=== PATIENT | male | born 1965 | race Caucasian/White ===

== ENCOUNTER → 2021-02-15 | Outpatient (CLI) | payer BC, OTHER ==
[~2021-02-15] VITALS: Ht 175.3 cm; Wt 114.8 kg
[~2021-02-15] MED LIST: ASA81BEC PO; LOPRESSOR50 MG PO; NITROSTAT0.4 M1 SUBLING; NORVASC10 MG PO; PROAIR HFA8.5 GM INH; ROSUVASTATIN CA20 MG PO; VIAGRA100 MG PO
[2021-02-15 07:23] LABS: ABSOLUTE NEUTROPHILS 5.1 thou/uL (1.4-8.2); HEMATOCRIT 47.4 % (42.0-52.0); LYMPHOCYTES 20.9 % (24.0-44.0); MCH 31.2 pg (26.0-34.0); MCHC 33.8 g/dL (28.0-37.0); MCV 92.3 fL (80.0-100.0); MONOCYTES 12.2 % (1.0-8.0); PLATELET COUNT 267 thou/uL (150-400); POLYS 59.9 % (36.0-66.0); RBC 5.14 mil/uL (4.50-6.00); RDW 12.9 % (10.5-14.5); WBC 8.6 thou/uL (4.0-11.0)
[2021-02-15 07:24] VITALS: BP 129/77
[2021-02-15 07:32] LABS: CALCIUM 8.9 mg/dL (8.5-10.1); CREATININE 0.9 mg/dL (0.7-1.3); POTASSIUM 4.3 mmol/L (3.5-5.1)
--- NOTE | 2021-02-17 14:51 | CATHLAB ---
[facility] [place] [address] INVASIVE PROCEDURE REPORT Name: FLORIN FARRAR Room #: [facility] Alanna#: [id number] Admission: 02/15/21 Attend Phys: Chris Jimenez MD, Discharge: Date of : 65 Report #: [id number] THIS REPORT FOR: cc: Farrukh Wiley James R. DO Mancuso, Gerald M. MD [facility] ~ APPROVED REPORT Study performed: 02/15/2021 07:57:34 Procedure Narrative A 6F [place] sheath was inserted into the RFA. Coronary angiography was performed using coronary diagnostic catheters. The right coronary system was accessed and visualized with a 6F JR4 catheter. The left coronary system was accessed and visualized with a 6F JL4 catheter. The left ventricle was accessed and visualized with a 6F Pigtail catheter. Left ventriculogram was performed in 30 degree projection. An aortogram of the abdominal aorta was performed. Pre-demployment femoral angiogram was performed . Closure device was deployed with a 6 Fr 6/7F MynxGrip. Hemostasis was obtained with manual pressure following sheath removal without any complications. The patient tolerated the procedure well and there were no complications associated with the procedure. There was no hematoma. Intraoperative Conscious Sedation Sedation start time: 08:52 Case end Time: 09:28 Fentanyl 50.0 mcg Versed 2.0 mg Fluoro Time: 2.4 minutes Dose: DAP 6916.27 cGycm2 818 mGy Contrast Type and Amount: Omnipaque 350-100ml Hemodynamics The right atrial mean pressure is 11 mmHg. The right ventricular pressure is 33/6 mmHg. The pulmonary artery pressure is 31/12 mmHg with a mean of 22 mmHg. The mean pulmonary capillary wedge pressure is 13 mmHg. The aortic pressure is 119/70 mmHg with a mean of 86 mmHg. The left ventricular pressure is 1286 mmHg with a mean of mmHg. The left ventricular end diastolic pressure is 19 mmHg. The cardiac output using thermo method is 5.25 L/min. The cardiac index using thermo method is 2.30 L/min/m2. Conclusion [facility] [address] [place] [address] INVASIVE PROCEDURE REPORT Name: FLORIN FARRAR Room #: [facility] Alanna#: [id number] Admission: 02/15/21 Attend Phys: Chris Jimenez, Discharge: Date of : 65 Report #: [id number] #1 Successful right heart catheterization with cardiac output by thermodilution. See above hemodynamics. #2 normal left jugular size and systolic function EF 55%. #3 abdominal aortogram revealing normal caliber aorta without evidence of aneurysm formation. #4 essentially normal coronary anatomy with selective injections as stated above right dominant system. No occlusive disease is noted. Recommendations and plan: Continue aggressive risk factor modification. No indication for coronary intervention. Normal pulmonary pressures are noted. Patient will return to Dr. Ohara for follow-up. <ELECTRONICALLY SIGNED> By: Chris Jimenez MD, FACC 02/17/211449 49 49 Chris Jimenez MD, FACC /INF
== END | disposition home or self-care (01) ==
LOC: CATH 06:32
PROVIDERS: ATTEND Internal Medicine Cardiovascular Disease
DX: R94.39 Abnormal result of other cardiovascular function study (principal); I10 Essential (primary) hypertension; J44.9 Chronic obstructive pulmonary disease, unspecified; E66.9 Obesity, unspecified; E78.00 Pure hypercholesterolemia, unspecified; Z98.890 Other specified postprocedural states; Z79.899 Other long term (current) drug therapy; Z86.73 Personal history of transient ischemic attack (TIA), and cerebral infarction without residual deficits